=== PATIENT | male | born 1990 | race Caucasian/White ===

== ENCOUNTER 2022-10-22 13:43 | Observation (INO) | payer OTHER ==
[2022-10-22] MEDS ORDERED: DIPH,PERTUS(ACELL)TETVAC-LF 0.5 ML VIAL IM ONE (15:03)
[2022-10-22] MEDS ORDERED: LIDOCAINE 1% INJ 10MG/ML (5 ML VIAL-PF) SQ STA (15:09)
[2022-10-22] MEDS ORDERED: LIDOCAINE-PRILOCAINE 2.5-2.5% CREAM 5 GM TUBE TOPICAL STA (15:11)
[2022-10-22] MEDS ORDERED: KETOROLAC 15 MG/ML 1 ML VIAL IVP STA (15:12)
[2022-10-22] MEDS ORDERED: ACETAMINOPHEN TAB 500 MG TAB PO STA (15:12)
--- NOTE | 2022-10-22 15:16 | ED ---
Skin/Abscess/FB HPI - General Chief complaint: Skin/Abscess/Foreign Body Stated complaint: Rt arm pain Time Seen by Provider: 10/22/22 15:02 Source: patient, RN notes reviewed, old records reviewed Mode of arrival: ambulatory Limitations: no limitations - History of Present Illness Initial comments: This is a nontoxic-appearing 31-year-old male presenting from [facility] for abscess to his right forearm. Patient states that he last injected heroin 3 weeks ago at this site. He was treated at [facility] and had an I&D and antibiotics which he continues to take but does not remember the name. States over the past couple of days another abscess in the same area has formed with increased pain and surrounding redness. Denies any fevers. Patient states that he is currently taking Subutex and does not want narcotics. MD complaint: abscess/boil (right forearm) -: week(s) (1) Tetanus Up to Date: no Location: RUE (forearm) Severity scale (1-10): 9 Quality: constant Consistency: constant Improves with: none Worsens with: palpation Context: IVDA Associated symptoms: denies other symptoms Treatments Prior to Arrival: antibiotic - Related Data Home Medications Medication Instructions Recorded Confirmed Acetaminophen [Tylenol] 650 mg PO Q4H PRN 10/22/22 10/22/22 Calcium, Magnesium, Zinc, With D3 1 tab PO TID PRN 10/22/22 10/22/22 334/134/5mg Chlorpheniramine Maleate 4 mg PO Q4H PRN 10/22/22 10/22/22 [Chlor-Trimeton] Docusate [Colace] 100 mg PO BID PRN 10/22/22 10/22/22 Doxycycline [Vibramycin] 100 mg PO BID 10/22/22 10/22/22 Hyoscyamine Sulfate [Levsin] 0.125 mg PO QID PRN 10/22/22 10/22/22 Ibuprofen [Motrin Ib] 600 mg PO Q6H PRN 10/22/22 10/22/22 Loperamide HCl [Imodium A-D] 2 - 4 mg PO QID PRN MDD 16mg 10/22/22 10/22/22 Mag Hydrox/Aluminum Hyd/Simeth 30 ml PO Q4H PRN 10/22/22 10/22/22 [Mylanta Maximum Strength Liq] Magnesium Hydroxide [Milk of 2,400 mg PO BID PRN 10/22/22 10/22/22 Magnesia] Multivitamins, Thera [Multivitamin 1 tab PO DAILY 10/22/22 10/22/22 (formulary)] Thiamine [Vitamin B-1] 100 mg PO DAILY 10/22/22 10/22/22 buprenorphine HCL [Subutex] 8 mg SL DAILY 10/22/22 10/22/22 guaiFENesin [guaiFENesin Oral 200 mg PO Q4H PRN 10/22/22 10/22/22 Solution] ondansetron HCL [Zofran] 8 mg PO Q6HR PRN 10/22/22 10/22/22 traZODone HCL [Desyrel] 50 - 150 mg PO HS PRN 10/22/22 10/22/22 Allergies Allergy/AdvReac Type Severity Reaction Status Date / Time No Known Allergies Allergy Verified 10/22/22 14:01 Review of Systems ROS Statement: Those systems with pertinent positive or pertinent negative responses have been documented in the HPI. ROS Other: All systems not noted in ROS Statement are negative. Past Medical History Past Medical History: No Reported History History of Any Multi-Drug Resistant Organisms: None Reported Past Surgical History: No Surgical Hx Reported Past Psychological History: Depression Smoking Status: Current every day smoker Past Alcohol Use History: None Reported Past Drug Use History: Cocaine, IV Drug Use, Marijuana General Exam Limitations: no limitations General appearance: alert, in no apparent distress Head exam: Present: atraumatic, normocephalic Eye exam: Present: normal appearance. Absent: scleral icterus, conjunctival injection, periorbital swelling Neck exam: Present: full ROM. Absent: tenderness, meningismus Respiratory exam: Absent: respiratory distress, accessory muscle use Cardiovascular Exam: Present: regular rate Extremities exam: Present: full ROM, tenderness (right forearm abscess with cellulitis and necrotic area approx 1cm), normal capillary refill Neurological exam: Present: alert, oriented X3, normal gait Psychiatric exam: Present: normal affect, normal mood Skin exam: Present: warm, dry, normal color. Absent: cyanosis, diaphoretic, petechiae, pallor Course Vital Signs 10/22/22 10/22/22 10/22/22 13:55 17:41 18:15 Temperature 98.0 F 98.6 F 98.2 F Pulse Rate 77 54 L Pulse Rate [ 78 Right Pulse Oximetery] Respiratory 22 18 16 Rate Blood Pressure 122/72 121/93 Blood Pressure 107/70 [Left Arm] O2 Sat by Pulse 100 100 100 Oximetry Procedures - Incision & Drainage Consent Obtained: verbal consent Site: upper extremity (right forearm) Anesthetic Used: lidocaine 1% (with topical lidocaine) I&D Cleaning Method: Alcohol Wipe Sterile Field Used?: No Scalpel Used: #15 Needle Aspiration Performed?: No Irrigation Performed?: No I&D Drainage Obtained: Pus Culture Obtained?: Yes Patient Tolerated Procedure: well Medical Decision Making - Medical Decision Making Was pt. sent in by a medical professional or institution (, PA, SENIOR SHAREPOINT DEVELOPER, urgent care, hospital, or fci...) When possible be specific @ -[facility] staff Did you speak to anyone other than the patient for history (EMS, parent, family, police, friend...)? What history was obtained from this source @ -No Did you review nursing and triage notes (agree or disagree)? Why? @ -I reviewed and agree with nursing and triage notes Were old charts reviewed (outside hosp., previous admission, EMS record, old EKG, old radiological studies, urgent care reports/EKG's, fci records)? Report findings @ -No old charts were reviewed Differential Diagnosis (chest pain, altered mental status, abdominal pain women, abdominal pain men, vaginal bleeding, weakness, fever, dyspnea, syncope, headache, dizziness, GI bleed, back pain, seizure, CVA, palpatations, mental health, musculoskeletal)? @ -Abscess, cellulitis, retained foreign body, osteomyelitis EKG interpreted by me (3pts min.). @ -n/a X-rays interpreted by me (1pt min.). @ -Yes. No evidence of foreign body. Soft tissue swelling noted. CT interpreted by me (1pt min.). @ -None done U/S interpreted by me (1pt. min.). @ -None done What testing was considered but not performed or refused? (CT, X-rays, U/S, labs)? Why? @ -None What meds were considered but not given or refused? Why? @ -Narcotics were offered and patient declined. At [facility] for rehab of heroin abuse. Did you discuss the management of the patient with other professionals (profe ssionals i.e. , PA, SENIOR SHAREPOINT DEVELOPER, lab, RT, psych nurse, social services manager, steam conditioner operator, teacher, hydrological technical officer, major case detective)? Give summary @ -No Was smoking cessation discussed for >3mins.? @ -No Was critical care preformed (if so, how long)? @ -No Were there social determinants of health that impacted care today? How? (Homelessness, low income, unemployed, alcoholism, drug addiction, transportati on, low edu. Level, literacy, decrease access to med. care, group home, rehab)? @ -No Was there de-escalation of care discussed even if they declined (Discuss DNR or withdrawal of care, Hospice)? DNR status @ -No What co-morbidities impacted this encounter? (DM, HTN, Smoking, COPD, CAD, Cancer, CVA, ARF, Chemo, Hep., AIDS, mental health diagnosis, sleep apnea, morbid obesity)? @ -Heroin abuse Was patient admitted / discharged? Hospital course, mention meds given and route, prescriptions, significant lab abnormalities, going to OR and other pertinent info. @ -Admitted. 31-year-old male presenting from [facility] for abscess to his right forearm. At [facility] for heroin abuse. Patient states that he last injected heroin 3 weeks ago at this site. He was treated at [facility] and had an I&D and antibiotics which he continues to take but does not remember the name. States over the past couple of days another abscess in the same area has formed with increased pain and surrounding redness. Denies any fevers. Patient states that he is currently taking Subutex and does not want narcotics. He was given Tylenol and Toradol for pain. Labs show mild leukocytosis. No evidence of lactic acidosis. X-ray to rule out foreign body in the right forearm was performed to proceed by me with no evidence of foreign body. Radiologist interpretation suspect extensi ve cellulitis and soft tissue swelling throughout the forearm. Contour deformity possible abscess or ulcer along the ulnar volar aspect of the midforearm. No radiopaque foreign body or underlying osseous abnormality seen. Incision and drainage was performed and a large amount of purulent drainage. Culture was sent. Patient was started on vancomycin for failed outpatient therapy of abscess with surrounding cellulitis right forearm. Patient will be admitted to the hospital with infectious disease consult. He is agreeable to this plan of care. Undiagnosed new problem with uncertain prognosis? @ -No Drug Therapy requiring intensive monitoring for toxicity (Heparin, Nitro, Insulin, Cardizem)? @ -No Were any procedures done? @ -Incision and drainage from right forearm abscess Diagnosis/symptom? @ -Right forearm abscess with surrounding cellulitis, failed outpatient therapy Acute, or Chronic, or Acute on Chronic? @ -Acute Uncomplicated (without systemic symptoms) or Complicated (systemic symptoms)? @ -Complicated Side effects of treatment? @ -No Exacerbation, Progression, or Severe Exacerbation? @ -No Poses a threat to life or bodily function? How? (Chest pain, [place], [place], pneumonia, PE, COPD, DKA, ARF, appy, cholecystitis, CVA, Diverticulitis, Homicidal, S uicidal, threat to staff... and all critical care pts) @ -No - Lab Data Result diagrams: 10/22/22 15:19 10/22/22 16:56 Lab Results 10/22/22 10/22/22 10/22/22 Range/Units 15:19 15:19 15:19 WBC 11.5 H (3.8-10.6) k/uL RBC 4.62 (4.30-5.90) m/uL Hgb 12.9 L (13.0-17.5) gm/dL Hct 40.5 (39.0-53.0) % MCV 87.7 (80.0-100.0) fL MCH 28.0 (25.0-35.0) pg MCHC 31.9 (31.0-37.0) g/dL RDW 14.1 (11.5-15.5) % Plt Count 299 (150-450) k/uL MPV 7.4 Neutrophils % 75 % Lymphocytes % 14 % Monocytes % 5 % Eosinophils % 2 % Basophils % 1 % Neutrophils # 8.6 H (1.3-7.7) k/uL Lymphocytes # 1.6 (1.0-4.8) k/uL Monocytes # 0.6 (0-1.0) k/uL Eosinophils # 0.2 (0-0.7) k/uL Basophils # 0.1 (0-0.2) k/uL Sodium 136 L (137-145) mmol/L Potassium 5.0 (3.5-5.1) mmol/L Chloride 102 (98-107) mmol/L Carbon Dioxide 27 (22-30) mmol/L Anion Gap 7 mmol/L BUN 20 (9-20) mg/dL Creatinine 0.62 L (0.66-1.25) mg/dL Est GFR (CKD-EPI)AfAm >90 (>60 ml/min/1.73 sqM) Est GFR (CKD-EPI)NonAf >90 (>60 ml/min/1.73 sqM) Glucose 89 (74-99) mg/dL Plasma Lactic Acid George 0.8 (0.7-2.0) mmol/L Calcium 8.8 (8.4-10.2) mg/dL Total Bilirubin 0.4 (0.2-1.3) mg/dL AST 30 (17-59) U/L ALT 31 (4-49) U/L Alkaline Phosphatase 65 (38-126) U/L Total Protein 7.0 (6.3-8.2) g/dL Albumin 3.8 (3.5-5.0) g/dL Disposition Clinical Impression: Cellulitis and abscess of upper extremity Disposition: ADMITTED IP TO THIS HOSP Decision Date: 10/22/22
[2022-10-22] MEDS ORDERED: VANCOMYCIN IV PER PHARMACY 1 EACH MISC MISCELLANE PRN (15:17)
[2022-10-22] MEDS ORDERED: IBUPROFEN 400 MG TAB PO PRN (15:57)
[2022-10-22] MEDS ORDERED: NALOXONE 0.4 MG/ML 1 ML VIAL IV PRN (15:57)
[2022-10-22] MEDS ORDERED: ACETAMINOPHEN TAB 325 MG TAB PO PRN (15:57)
[2022-10-22] MEDS ORDERED: VANCOMYCIN 1,250 MG in SODIUM CHLORIDE 0.9% 250 ML IVPB ONE (16:00)
[2022-10-22 16:24] LABS: Basophils # (A) 0.1 k/uL (0-0.2); Basophils % (A) 1 %; Eosinophils # (A) 0.2 k/uL (0-0.7); Eosinophils % (A) 2 %; HCT 40.5 % (39.0-53.0); HGB 12.9 gm/dL (13.0-17.5); Lymphocytes # (A) 1.6 k/uL (1.0-4.8); Lymphocytes % (A) 14 %; MCHC 31.9 g/dL (31.0-37.0); MCV 87.7 fL (80.0-100.0); Mean Platelet Volume 7.4; Monocytes # (A) 0.6 k/uL (0-1.0); Monocytes % (A) 5 %; Neutrophils # (A) 8.6 k/uL (1.3-7.7); Neutrophils % (A) 75 %; Platelet Count 299 k/uL (150-450); RBC 4.62 m/uL (4.30-5.90); RDW 14.1 % (11.5-15.5); WBC 11.5 k/uL (3.8-10.6)
--- NOTE | 2022-10-22 16:24 | XR ---
EXAMINATION TYPE: XR forearm RT DATE OF EXAM: 10/22/2022 COMPARISON: NONE HISTORY: 31-year-old male for body, pain, redness, and swelling. IVDA injection 3 weeks ago. TECHNIQUE: 2 views FINDINGS: There is generalized soft tissue swelling throughout the forearm with contour irregularity in focal p rotuberance from the ulnar volar aspect of the midforearm. No retained radiopaque foreign body is see n. No soft tissue air is identified. IMPRESSION: Suspect extensive cellulitis and soft tissue swelling throughout the forearm. Contour deformity, poss ible abscess or ulcer along the ulnar volar aspect of the midforearm. No radiopaque foreign body or u nderlying acute osseous abnormality seen.
[2022-10-22] MEDS ORDERED: HYDROmorphone 1 MG/ML 1 ML SYRINGE IVP STA (16:37)
[2022-10-22 16:42] LABS: ALT 31 U/L (4-49); AST 30 U/L (17-59); African American GFR (CKD) >90 (>60 ml/min/1.73 sqM); Albumin 3.8 g/dL (3.5-5.0); Alkaline Phosphatase 65 U/L (38-126); Anion Gap 7 mmol/L; Blood Urea Nitrogen 20 mg/dL (9-20); Calcium 8.8 mg/dL (8.4-10.2); Carbon Dioxide 27 mmol/L (22-30); Chloride 102 mmol/L (98-107); Non-African American GFR(CKD) >90 (>60 ml/min/1.73 sqM); Sodium 136 mmol/L (137-145); Total Bilirubin 0.4 mg/dL (0.2-1.3)
[2022-10-22 16:46] LABS: Glucose 89 mg/dL (74-99)
[2022-10-22] MEDS: LORazepam 1 MG TAB PO PRN ×2 (16:47→20:47)
--- NOTE | 2022-10-22 16:54 | P.HPIM ---
History of Present Illness H&P Date: 10/22/22 31-year-old male with PMH of IV drug abuse presents the ED for right forearm abscess and cellulitis. He was sent from [facility]. Patient reports symptoms ongoing for the past 2 weeks. Patient reports attempting to inject IV drugs in that area 2 weeks ago when he missed the vein. Initially presented at [facility] in [place] ED where they performed I&D and discharged him with oral antibiotics. He reports worsening erythema and swelling over the last 2 days. He reports taking Subutex at [facility]. He denies any headache, lower extremity edema, nausea or vomiting, fever or chills, cough, chest pain, shortness of breath, palpitations, changes in urination or bowel habits. No changes in appetite or weight. He denies any dizziness, numbness/weakness/tingling of the extremities. In the ED, his vital signs are stable. CBC showed leukocytosis of 11.5 with neutrophilia. Forearm x-ray showed extensive cellulitis and soft tissue swelling throughout the forearm with possible abscess formation. Patient is admitted for further management. Pertinent positives and negatives as discussed in HPI, a complete review of systems was performed and all other systems are negative. General: non toxic, no distress, appears at stated age Derm: warm, dry, right forearm with erythema and swelling, open wound draining purulent material along with induration on the lateral side Head: atraumatic, normocephalic, symmetric Eyes: EOMI, no lid lag, anicteric sclera Mouth: no lip lesion, mucus membranes moist Cardiovascular: S1S2 reg, no murmur Lungs: CTA bilateral, no rhonchi, no rales , no accessory muscle use Ext: no gross muscle atrophy, no edema, no contractures Neuro: no focal neuro deficits Psych: Alert, oriented, appropriate affect Right forearm abscess History of IV drug abuse Smoker Based on my assessment of this patient, this patient meets a high complexity level of care. Patient has an acute diagnosis of forearm abscess, failed outpatient antibiotic treatment that poses a threat to life or bodily function. Currently has a leukocytosis. Antibiotics: Vancomycin 1250 mg IV x 1 with dosing per pharmacy Pain management: Toradol 15 mg IV Q6H, Dilaudid 1 mg IV x 1 Infectious disease and general surgery consulted. We will confirm with [facility] that he is taking Subutex. SCDs for DVT prophylaxis. Mother is his decision maker if he can't make decisions for himself. FULL CODE. I have reviewed the following commercial solar sales consultant notes: None. I have reviewed the results of the following tests: CBC showed leukocytosis of 11.5 with neutrophilia. Forearm x-ray showed ex tensive cellulitis and soft tissue swelling throughout the forearm with possible abscess formation. I have ordered the following tests: Wound culture and blood culture is ordered. CMP ordered. Lactic acid ordered. I have discussed the care of this patient with the following independent historian: None. I have independently interpreted the following test below: None. I have discussed the management of this patient with the following physician: The case was discussed with the ED physician and decision made to admit the patient for treatment of abscess and cellulities, failed outpatient treatment with oral antibitoics. This patient has a high risk of morbidity due to the following reasons: Vancomycin is nephrotoxic - needs daily monitoring of trough and renal function. Past Medical History Past Medical History: No Reported History History of Any Multi-Drug Resistant Organisms: None Reported Past Surgical History: No Surgical Hx Reported Past Psychological History: Depression Smoking Status: Current every day smoker Past Alcohol Use History: None Reported Past Drug Use History: Cocaine, IV Drug Use, Marijuana Medications and Allergies Allergies Allergy/AdvReac Type Severity Reaction Status Date / Time No Known Allergies Allergy Verified 10/22/22 14:01 Physical Exam Vitals: Vital Signs Temp Pulse Resp BP Pulse Ox 10/22/22 13:55 98.0 F 77 22 122/72 100 Intake and Output 10/22/22 10/22/22 10/22/22 06:59 14:59 22:59 Other: Weight 65.771 kg Results CBC & Chem 7: 10/22/22 15:19 10/22/22 15:19 Labs: Abnormal Lab Results - Last 24 Hours (Table) 10/22/22 10/22/22 Range/Units 15:19 15:19 WBC 11.5 H (3.8-10.6) k/uL Hgb 12.9 L (13.0-17.5) gm/dL Neutrophils # 8.6 H (1.3-7.7) k/uL Sodium 136 L (137-145) mmol/L Creatinine 0.62 L (0.66-1.25) mg/dL
[2022-10-22] MEDS ORDERED: diphenhydrAMINE 50 MG/ML 1 ML VIAL IVP ONE (17:01)
[2022-10-22 17:30] LABS: ALT 32 U/L (4-49); AST 27 U/L (17-59); African American GFR (CKD) >90 (>60 ml/min/1.73 sqM); Albumin/Globulin Ratio 1.2; Alkaline Phosphatase 72 U/L (38-126); Anion Gap 7 mmol/L; Blood Urea Nitrogen 20 mg/dL (9-20); Calcium 9.1 mg/dL (8.4-10.2); Carbon Dioxide 31 mmol/L (22-30); Chloride 100 mmol/L (98-107); Globulin 3.4 g/dL; Glucose 90 mg/dL (74-99); Non-African American GFR(CKD) >90 (>60 ml/min/1.73 sqM); Potassium 4.7 mmol/L (3.5-5.1); Sodium 138 mmol/L (137-145); Total Bilirubin 0.3 mg/dL (0.2-1.3); Total Protein 7.4 g/dL (6.3-8.2)
[2022-10-22] MEDS: NICOTINE 21MG/24HR PATCH TRANSDERM SCH (18:38)
[2022-10-22] MEDS: KETOROLAC 15 MG/ML 1 ML VIAL IVP PRN (23:00)
[2022-10-22] MEDS: VANCOMYCIN 1,250 MG in SODIUM CHLORIDE 0.9% 250 ML IVPB SCH (23:02)
[2022-10-22] MEDS ORDERED: MORPHINE SULFATE 2 MG/ML SYRINGE IVP STA (23:09)
[2022-10-23 06:47] LABS: African American GFR (CKD) >90 (>60 ml/min/1.73 sqM); Non-African American GFR(CKD) >90 (>60 ml/min/1.73 sqM)
[2022-10-23] MEDS: LORazepam 1 MG TAB PO PRN ×4 (07:50→23:23)
[2022-10-23] MEDS: KETOROLAC 15 MG/ML 1 ML VIAL IVP PRN (07:50)
[2022-10-23] MEDS: VANCOMYCIN 1,250 MG in SODIUM CHLORIDE 0.9% 250 ML IVPB SCH ×2 (07:51→16:15)
[2022-10-23] MEDS: NICOTINE 21MG/24HR PATCH TRANSDERM SCH (07:51)
[2022-10-23] MEDS: NON FORMULARY DRUG (Buprenorphine Hcl [Subutex] 2 MG Tab.Subl) SUBLINGUAL SCH (09:01)
[2022-10-23] MEDS: MORPHINE SULFATE 2 MG/ML SYRINGE IVP PRN ×4 (09:53→23:22)
--- NOTE | 2022-10-23 10:15 | P.GSCN ---
History of Present Illness Consult date: 10/23/22 Reason for Consult: Right forearm abscess History of present illness: Is a 31-year-old male with history of IV drug abuse. Patient states he was injecting Patanol. He has developed an abscess. This was initially drained several weeks ago. He has also developed another abscess in his arm. This was apparently drained in the emergency room. Patient states the swelling has improved. He denies any significant pain. Past Medical History Past Medical History: No Reported History History of Any Multi-Drug Resistant Organisms: None Reported Past Surgical History: No Surgical Hx Reported Past Psychological History: Depression Smoking Status: Current every day smoker Past Alcohol Use History: None Reported Past Drug Use History: Cocaine, IV Drug Use, Marijuana Medications and Allergies Home Medications Medication Instructions Recorded Confirmed Type Acetaminophen [Tylenol] 650 mg PO Q4H PRN 10/22/22 10/22/22 History Calcium, Magnesium, Zinc, With D3 1 tab PO TID PRN 10/22/22 10/22/22 History 334/134/5mg Chlorpheniramine Maleate 4 mg PO Q4H PRN 10/22/22 10/22/22 History [Chlor-Trimeton] Docusate [Colace] 100 mg PO BID PRN 10/22/22 10/22/22 History Doxycycline [Vibramycin] 100 mg PO BID 10/22/22 10/22/22 History Hyoscyamine Sulfate [Levsin] 0.125 mg PO QID PRN 10/22/22 10/22/22 History Ibuprofen [Motrin Ib] 600 mg PO Q6H PRN 10/22/22 10/22/22 History Loperamide HCl [Imodium A-D] 2 - 4 mg PO QID PRN MDD 16mg 10/22/22 10/22/22 History Mag Hydrox/Aluminum Hyd/Simeth 30 ml PO Q4H PRN 10/22/22 10/22/22 History [Mylanta Maximum Strength Liq] Magnesium Hydroxide [Milk of 2,400 mg PO BID PRN 10/22/22 10/22/22 History Magnesia] Multivitamins, Thera [Multivitamin 1 tab PO DAILY 10/22/22 10/22/22 History (formulary)] Thiamine [Vitamin B-1] 100 mg PO DAILY 10/22/22 10/22/22 History buprenorphine HCL [Subutex] 8 mg SL DAILY 10/22/22 10/22/22 History guaiFENesin [guaiFENesin Oral 200 mg PO Q4H PRN 10/22/22 10/22/22 History Solution] ondansetron HCL [Zofran] 8 mg PO Q6HR PRN 10/22/22 10/22/22 History traZODone HCL [Desyrel] 50 - 150 mg PO HS PRN 10/22/22 10/22/22 History Allergies Allergy/AdvReac Type Severity Reaction Status Date / Time No Known Allergies Allergy Verified 10/22/22 14:01 Surgical - Exam Vital Signs Temp Pulse Resp BP Pulse Ox 98.0 F 77 22 122/72 100 10/22/22 13:55 10/22/22 13:55 10/22/22 13:55 10/22/22 13:55 10/22/22 13:55 - General no distress - Eyes PERRL - ENT normal pinna - Neck no masses - Respiratory normal expansion - Cardiovascular Rhythm: regular - Abdomen Abdomen: soft, non tender - Integumentary There is evidence of 2 1 cm incisions on the right forearm. Is no drainable abscess present. Results - Labs 10/22/22 15:19 10/23/22 06:14 Abnormal Lab Results - Last 24 Hours (Table) 10/22/22 10/22/22 10/22/22 Range/Units 15:19 15:19 16:56 WBC 11.5 H (3.8-10.6) k/uL Hgb 12.9 L (13.0-17.5) gm/dL Neutrophils # 8.6 H (1.3-7.7) k/uL Sodium 136 L (137-145) mmol/L Carbon Dioxide 31 H (22-30) mmol/L Creatinine 0.62 L 0.58 L (0.66-1.25) mg/dL 10/23/22 Range/Units 06:14 WBC (3.8-10.6) k/uL Hgb (13.0-17.5) gm/dL Neutrophils # (1.3-7.7) k/uL Sodium (137-145) mmol/L Carbon Dioxide (22-30) mmol/L Creatinine 0.53 L (0.66-1.25) mg/dL Microbiology - Last 24 Hours (Table) 10/22/22 15:19 Wound Culture - Preliminary Arm - Right Diabetes panel 10/22/22 10/22/22 10/23/22 Range/Units 15:19 16:56 06:14 Sodium 136 L 138 (137-145) mmol/L Potassium 5.0 4.7 (3.5-5.1) mmol/L Chloride 102 100 (98-107) mmol/L Carbon Dioxide 27 31 H (22-30) mmol/L BUN 20 20 (9-20) mg/dL Creatinine 0.62 L 0.58 L 0.53 L (0.66-1.25) mg/dL Glucose 89 90 (74-99) mg/dL Calcium 8.8 9.1 (8.4-10.2) mg/dL AST 30 27 (17-59) U/L ALT 31 32 (4-49) U/L Alkaline Phosphatase 65 72 (38-126) U/L Total Protein 7.0 7.4 (6.3-8.2) g/dL Albumin 3.8 4.0 (3.5-5.0) g/dL Calcium panel 10/22/22 10/22/22 Range/Units 15:19 16:56 Calcium 8.8 9.1 (8.4-10.2) mg/dL Albumin 3.8 4.0 (3.5-5.0) g/dL Pituitary panel 10/22/22 10/22/22 10/23/22 Range/Units 15:19 16:56 06:14 Sodium 136 L 138 (137-145) mmol/L Potassium 5.0 4.7 (3.5-5.1) mmol/L Chloride 102 100 (98-107) mmol/L Carbon Dioxide 27 31 H (22-30) mmol/L BUN 20 20 (9-20) mg/dL Creatinine 0.62 L 0.58 L 0.53 L (0.66-1.25) mg/dL Glucose 89 90 (74-99) mg/dL Calcium 8.8 9.1 (8.4-10.2) mg/dL Adrenal panel 10/22/22 10/22/22 10/23/22 Range/Units 15:19 16:56 06:14 Sodium 136 L 138 (137-145) mmol/L Potassium 5.0 4.7 (3.5-5.1) mmol/L Chloride 102 100 (98-107) mmol/L Carbon Dioxide 27 31 H (22-30) mmol/L BUN 20 20 (9-20) mg/dL Creatinine 0.62 L 0.58 L 0.53 L (0.66-1.25) mg/dL Glucose 89 90 (74-99) mg/dL Calcium 8.8 9.1 (8.4-10.2) mg/dL Total Bilirubin 0.4 0.3 (0.2-1.3) mg/dL AST 30 27 (17-59) U/L ALT 31 32 (4-49) U/L Alkaline Phosphatase 65 72 (38-126) U/L Total Protein 7.0 7.4 (6.3-8.2) g/dL Albumin 3.8 4.0 (3.5-5.0) g/dL Assessment and Plan Assessment: History of IV drug abuse with forearm abscess related to injections. Patient has no drainable abscess currently. Continue receive IV antibiotics.
--- NOTE | 2022-10-23 12:07 | P.PN ---
Subjective Progress Note Date: 10/23/22 31-year-old male with PMH of IV drug abuse presents the ED for right forearm abscess and cellulitis. He was sent from [facility]. Patient reports symptoms ongoing for the past 2 weeks. Patient reports attempting to inject IV drugs in that area 2 weeks ago when he missed the vein. Initially presented at [facility] in [place] ED where they performed I&D and discharged him with oral antibiotics. He reports worsening erythema and swelling over the last 2 days. He reports taking Subutex at [facility]. He denies any headache, lower extremity edema, nausea or vomiting, fever or chills, cough, chest pain, shortness of breath, palpitations, changes in urination or bowel habits. No changes in appetite or weight. He denies any dizziness, numbness/weakness/tingling of the extremities. In the ED, his vital signs are stable. CBC showed leukocytosis of 11.5 with neutrophilia. Forearm x-ray showed extensive cellulitis and soft tissue swelling throughout the forearm with possible abscess formation. Patient was started on Vancomycin and admitted for further management. 10/23 Patient was seen and examined. No acute events overnight. Subutex unable to be verified yesterday and patient started on Morphine PRN for pain control. He reports that the abscess self drained while in the ED. Wound culture is pending. Renal function shows Cr 0.53. Continued on Vancomycin IV. General: non toxic, no distress, appears at stated age Derm: warm, dry, right forearm dressing c/d/i Head: atraumatic, normocephalic, symmetric Eyes: EOMI, no lid lag, anicteric sclera Cardiovascular: good distal perfusion in all 4 extremities Lungs: breathing comfortably, no accessory muscle use Ext: no gross muscle atrophy, no edema, no contractures Neuro: no focal neuro deficits Psych: Alert, oriented, appropriate affect Right forearm abscess History of IV drug abuse Anxiety Smoker Based on my assessment of this patient, this patient meets a high complexity level of care. Patient has an acute diagnosis of forearm abscess, failed outpatient antibiotic treatment that poses a threat to life or bodily function. Currently has a leukocytosis. Antibiotics: Vancomycin 1250 mg IV Q8H with dosing per pharmacy Pain management: Toradol 15 mg IV Q6H, Morphine 2mg IV Q4H PRN for today and start Suboxone tomorrow. Infectious disease and general surgery on board. Pharmacy confirmed with [facility] that he is taking Subutex. Start Suboxone tomorrow. SCDs for DVT prophylaxis. Mother is his decision maker if he can't make decisions for himself. FULL CODE. I have reviewed the following oim consultant notes: Surgery note reviewed 10/23. No surgical intervention. I have reviewed the results of the following tests: Wound culture collected and pending. Lactic acid negative. I have ordered the following tests: Wound culture and blood culture is pending. Daily creatinine and vancomycin trough. I have discussed the care of this patient with the following independent historian: None. I have independently interpreted the following test below: None. I have discussed the management of this patient with the following physician: The case was discussed with Dr. Kirkpatrick, continue Vancomycin while waiting for wound culture to finalize. This patient has a high risk of morbidity due to the following reasons: Vancomycin is nephrotoxic - needs daily monitoring of trough and renal function. Objective - Vital Signs Vital signs: Vital Signs Temp 98.1 F 10/23/22 07:11 Pulse 70 10/23/22 07:11 Resp 18 10/23/22 07:11 BP 114/68 10/23/22 07:11 Pulse Ox 99 10/23/22 07:11 FiO2 Intake & Output 10/22/22 10/23/22 10/23/22 18:59 06:59 18:59 Intake Total 240 180 Balance 240 180 Weight 65.771 kg Intake: Oral 240 180 Other: Voiding Method Toilet Toilet # Voids 4 - Labs CBC & Chem 7: 10/22/22 15:19 10/23/22 06:14 Labs: Abnormal Lab Results - Last 24 Hours (Table) 10/22/22 10/22/22 10/22/22 Range/Units 15:19 15:19 16:56 WBC 11.5 H (3.8-10.6) k/uL Hgb 12.9 L (13.0-17.5) gm/dL Neutrophils # 8.6 H (1.3-7.7) k/uL Sodium 136 L (137-145) mmol/L Carbon Dioxide 31 H (22-30) mmol/L Creatinine 0.62 L 0.58 L (0.66-1.25) mg/dL 10/23/22 Range/Units 06:14 WBC (3.8-10.6) k/uL Hgb (13.0-17.5) gm/dL Neutrophils # (1.3-7.7) k/uL Sodium (137-145) mmol/L Carbon Dioxide (22-30) mmol/L Creatinine 0.53 L (0.66-1.25) mg/dL Microbiology - Last 24 Hours (Table) 10/22/22 15:19 Wound Culture - Preliminary Arm - Right
[2022-10-23] MEDS ORDERED: VANCOMYCIN TROUGH DUE 1 EACH MISC MISCELLANE ONE (15:00)
--- NOTE | 2022-10-23 21:28 | P.CONS ---
History of Present Illness - Reason for Consult Consult date: 10/23/22 Abscess right forearm Requesting physician: Vic Rodriguez - Chief Complaint Right forearm swelling redness x few days - History of Present Illness Patient is a 31-year-old male with a past medical history significant for IV drug use apparently patient did injected into his right forearm and has missed a vein subsequently developed an area of swelling redness and abscess for the patient was treated and [facility], however the patient did have I&D of the abscess and subsequently has been sent home on oral antibiotic however the patient not clear about the name of those antibiotics patient subsequently has been at [facility] for rehabilitation with the patient was noticed to have a worsening swelling and redness of the right upper extremity for the patient was sent to [facility] ER for further evaluation patient denies high- grade fever or any chills has been complaining of pain to the right forearm describing it to be more of a sharp in nature almost 7-10 out of 10 with no radiation with associated swelling redness and some drainage patient on presentation the hospital was afebrile he did have vital of 11.5 with a left shift kidney function was normal liver enzymes are normal local wound culture has been obtained which are currently pending patient did have x-ray of the forearm extensor cellulitis soft tissue swelling possible abscess along the ulnar aspect of the midforearm patient was started on vancomycin with consult to general surgeon who has seen the patient and no need for any surgical drainage as there was no evidence of any abscess, infectious disease for further management of antibiotic therapy Review of Systems Positive point and negatives has been mentioned in the HPI, complete review of systems was performed and all other systems are negative Past Medical History Past Medical History: No Reported History History of Any Multi-Drug Resistant Organisms: None Reported Past Surgical History: No Surgical Hx Reported Past Psychological History: Depression Smoking Status: Current every day smoker Past Alcohol Use History: None Reported Past Drug Use History: Cocaine, IV Drug Use, Marijuana Medications and Allergies Home Medications Medication Instructions Recorded Confirmed Type Acetaminophen [Tylenol] 650 mg PO Q4H PRN 10/22/22 10/22/22 History Calcium, Magnesium, Zinc, With D3 1 tab PO TID PRN 10/22/22 10/22/22 History 334/134/5mg Chlorpheniramine Maleate 4 mg PO Q4H PRN 10/22/22 10/22/22 History [Chlor-Trimeton] Hyoscyamine Sulfate [Levsin] 0.125 mg PO QID PRN 10/22/22 10/22/22 History Ibuprofen [Motrin Ib] 600 mg PO Q6H PRN 10/22/22 10/22/22 History Loperamide HCl [Imodium A-D] 2 - 4 mg PO QID PRN MDD 16mg 10/22/22 10/22/22 History Mag Hydrox/Aluminum Hyd/Simeth 30 ml PO Q4H PRN 10/22/22 10/22/22 History [Mylanta Maximum Strength Liq] Magnesium Hydroxide [Milk of 2,400 mg PO BID PRN 10/22/22 10/22/22 History Magnesia] Multivitamins, Thera [Multivitamin 1 tab PO DAILY 10/22/22 10/22/22 History (formulary)] Thiamine [Vitamin B-1] 100 mg PO DAILY 10/22/22 10/22/22 History buprenorphine HCL [Subutex] 8 mg SL DAILY 10/22/22 10/22/22 History guaiFENesin [guaiFENesin Oral 200 mg PO Q4H PRN 10/22/22 10/22/22 History Solution] ondansetron HCL [Zofran] 8 mg PO Q6HR PRN 10/22/22 10/22/22 History traZODone HCL [Desyrel] 50 - 150 mg PO HS PRN 10/22/22 10/22/22 History Cephalexin [Keflex] 500 mg PO Q6HR 10 Days #40 cap 10/25/22 Rx Allergies Allergy/AdvReac Type Severity Reaction Status Date / Time No Known Allergies Allergy Verified 10/22/22 14:01 Physical Exam Vitals: Vital Signs Temp Pulse Pulse Resp BP BP BP 10/23/22 07:11 98.1 F 70 18 114/68 10/23/22 02:00 98 F 74 17 138/68 10/22/22 20:00 97.8 F 84 18 106/71 10/22/22 18:15 98.2 F 78 16 107/70 10/22/22 17:41 98.6 F 54 L 18 121/93 10/22/22 13:55 98.0 F 77 22 122/72 Pulse Ox 10/23/22 07:11 99 10/23/22 02:00 99 05/26/23 20:00 99 10/22/22 18:15 100 10/22/22 17:41 100 10/22/22 13:55 100 Intake and Output 10/22/22 10/23/22 10/23/22 22:59 06:59 14:59 Intake Total 240 Balance 240 Intake: Oral 240 Other: Voiding Method Toilet Toilet # Voids 1 4 Weight 65.771 kg GENERAL DESCRIPTION: Middle-aged male lying in bed, no distress. No tachypnea or accessory muscle of respiration use. HEENT: Shows Pallor , no scleral icterus. Oral mucous membrane is dry. No pha ryngeal erythema or thrush NECK: Trachea central, no thyromegaly. LUNGS: Unlabored breathing. Clear to auscultation anteriorly. No wheeze or crackle. HEART: S1, S2, regular rate and rhythm. No loud murmur ABDOMEN: Soft, no tenderness , guarding or rigidity, no organomegaly EXTREMITIES: Right forearm did have swelling redness with minimal drainage SKIN: No rash, no masses palpable. NEUROLOGICAL: The patient is awake, alert, oriented x3, mood and affect normal. Results CBC & Chem 7: 10/24/22 05:25 10/25/22 06:44 Labs: Abnormal Lab Results - Last 24 Hours (Table) 10/22/22 10/22/22 10/22/22 Range/Units 15:19 15:19 16:56 WBC 11.5 H (3.8-10.6) k/uL Hgb 12.9 L (13.0-17.5) gm/dL Neutrophils # 8.6 H (1.3-7.7) k/uL Sodium 136 L (137-145) mmol/L Carbon Dioxide 31 H (22-30) mmol/L Creatinine 0.62 L 0.58 L (0.66-1.25) mg/dL 10/23/22 Range/Units 06:14 WBC (3.8-10.6) k/uL Hgb (13.0-17.5) gm/dL Neutrophils # (1.3-7.7) k/uL Sodium (137-145) mmol/L Carbon Dioxide (22-30) mmol/L Creatinine 0.53 L (0.66-1.25) mg/dL Microbiology - Last 24 Hours (Table) 10/22/22 15:19 Wound Culture - Preliminary Arm - Right Assessment and Plan (1) Cellulitis and abscess of upper extremity Status: Acute Code(s): L03.119 - CELLULITIS OF UNSPECIFIED PART OF LIMB; L02.419 - CUTANEOUS ABSCESS OF LIMB, UNSPECIFIED SNOMED Code(s): 636103828 Plan: 1patient is to hospital right upper extremity cellulitis failing outpatient oral antibiotic therapy in this patient with a history of IV drug use and previous drainage at the outside facility and did not respond well to the oral antibiotic the patient was prescribed however the patient not sure about the name of this antibiotic and a question of compliance with outpatient oral antibiotic therapy, general surgery has seen the patient and recommending no drainage at this point 2-local cultures obtained and those will be followed 3-vancomycin pharmacy to dose with a target trough of 15 while watching kidney function and Vanco trough closely. We will follow on clinical condition and cultures to further adjust medication if needed Thank you for this consultation we will follow the patient along with you Time with Patient: Greater than 30
[2022-10-24] MEDS: CLINDAMYCIN 900 MG in DEXTROSE 5% IN WATER 50 ML IVPB SCH ×6 (00:14→15:22)
[2022-10-24] MEDS: LORazepam 1 MG TAB PO PRN ×3 (05:41→21:09)
[2022-10-24] MEDS: MORPHINE SULFATE 2 MG/ML SYRINGE IVP PRN (05:41)
[2022-10-24 06:18] LABS: African American GFR (CKD) >90 (>60 ml/min/1.73 sqM); Non-African American GFR(CKD) >90 (>60 ml/min/1.73 sqM)
[2022-10-24] MEDS: NICOTINE 21MG/24HR PATCH TRANSDERM SCH (09:23)
[2022-10-24] MEDS: NON FORMULARY DRUG (Buprenorphine Hcl [Subutex] 2 MG Tab.Subl) SUBLINGUAL SCH (09:27)
[2022-10-24 10:05] LABS: HCT 39.4 % (39.0-53.0); HGB 12.6 gm/dL (13.0-17.5); MCH 28.5 pg (25.0-35.0); MCV 89.1 fL (80.0-100.0); Mean Platelet Volume 8.5; Platelet Count 301 k/uL (150-450); RBC 4.42 m/uL (4.30-5.90); RDW 14.1 % (11.5-15.5); WBC 8.8 k/uL (3.8-10.6)
[2022-10-24 10:22] LABS: African American GFR (CKD) >90 (>60 ml/min/1.73 sqM); Anion Gap 7 mmol/L; Blood Urea Nitrogen 15 mg/dL (9-20); Calcium 8.9 mg/dL (8.4-10.2); Carbon Dioxide 26 mmol/L (22-30); Chloride 105 mmol/L (98-107); Glucose 90 mg/dL (74-99); Non-African American GFR(CKD) >90 (>60 ml/min/1.73 sqM); Potassium 4.6 mmol/L (3.5-5.1); Sodium 138 mmol/L (137-145)
--- NOTE | 2022-10-24 10:55 | P.PN ---
Progress Note - Text Progress Note Date: 10/24/22 The patient feels better. There is less swelling of his right forearm. On exam vital signs are stable. There is decreasing cellulitis of his arm. There is no significant drainage from his abscess drainage site. Status post forearm abscess related to IV drug abuse. Patient received medical management.
[2022-10-24] MEDS: KETOROLAC 15 MG/ML 1 ML VIAL IVP PRN (13:07)
--- NOTE | 2022-10-24 13:49 | P.PN ---
Subjective Progress Note Date: 10/24/22 Patient is a 31-year-old male for history of IV drug abuse, recent forearm cellulitis with abscess left who presented from [facility] due to worsening redness of his right forearm. In the ER he underwent an extensive evaluation. He was found to have an elevated white blood cell count and a forearm x-ray with extensive cellulitis and soft tissue swelling with possible abscess. He was admitted and started on vancomycin for further management. Surgery was consulted and felt there was not a definitive abscess that warm to drainage. Infectious disease was consulted. His culture came back as strep pyogenous and antibiotics were transitioned to cefazolin and clindamycin. Patient seen and examined at bedside. He reports that his arm pain is almost completely resolved. He is feeling much better. He plans on returning to [facility] on discharge. He denies any nausea, vomiting, diarrhea. Vital signs reviewed General: nontoxic, no distress, appears at stated age Cardiovascular: S1S2 reg, no murmur, positive posterior tibial pulse bilateral, Lungs: CTA bilateral, no rhonchi, no rales , no accessory muscle use Abdominal: soft, nontender to palpation, no guarding, no appreciable organomegaly Ext: no gross muscle atrophy, no edema, no contractures Right arm with approximately 7 cm area of redness 2 less than dime-sized area is open down to the subcutaneous fat without purulent drainage Neuro: CN II-XI grossly intact, no focal neuro deficits Psych: Alert, oriented, appropriate affect Assessment: Strep pyogenous Right forearm abscess, failed outpatient treatment History of IVDA Anxiety Nicotine dependency Imaging: none new Data Review: T-max last 24 hours is 98.4 Laboratory analysis from today reviewed with normal white blood cell count 8.8 and creatinine 0.59 Plan: - Continue with clindamycin 900 mg every 8 hours IV piggyback day #2 -Continue with cefazolin 2 g IV every 8 hours day #1 -Case discussed with Dr. Le and he feels that the arm is much improved. -Continue pain control with Toradol 15 mg IV every 6 hours when necessary pain or Motrin 400 mg every 6 hours when necessary pain -Patient does not have Subutex to bring in -Continue with Ativan 1 mg 3 times daily as needed for anxiety. -Await further infectious disease recommendations DVT prophylaxis: SCDs This dictation was prepared using [employer] voice recognition software. Though every attempt is made to correct errors during during dictation some may still exist. Objective - Vital Signs Vital signs: Vital Signs Temp 97.9 F 10/24/22 07:08 Pulse 89 10/24/22 07:08 Resp 19 10/24/22 07:08 BP 108/67 10/24/22 07:08 Pulse Ox 94 L 10/24/22 07:08 FiO2 Intake & Output 10/23/22 10/24/22 10/24/22 18:59 06:59 18:59 Intake Total 180 180 Balance 180 180 Intake: Oral 180 180 Other: Voiding Method Toilet Toilet # Voids 2 2 1 - Labs CBC & Chem 7: 10/24/22 05:25 10/24/22 05:25 Labs: Abnormal Lab Results - Last 24 Hours (Table) 10/24/22 10/24/22 10/24/22 Range/Units 05:25 05:25 05:25 Hgb 12.6 L (13.0-17.5) gm/dL Creatinine 0.58 L 0.59 L (0.66-1.25) mg/dL Microbiology - Last 24 Hours (Table) 10/22/22 15:19 Blood Culture - Preliminary Blood 10/22/22 15:19 Blood Culture - Preliminary Blood 10/22/22 15:19 Gram Stain - Preliminary Arm - Right Wound Culture - Preliminary Strep pyogenes (grp a)
[2022-10-24] MEDS: BUPRENORPHINE-NALOX 8-2 MG TAB 1 EACH TAB.SUBL SL SCH (14:24)
--- NOTE | 2022-10-24 21:02 | P.PN ---
Subjective Progress Note Date: 10/24/22 Principal diagnosis: R forearm abscess Patient is a 31-year-old male with a past medical history significant for IV drug use with a recent abscess to the right forearm did have a drainage at the outside facility and treated with the oral biotics without any improvement subsequently admission to this facility with worsening swelling redness and drainage. On today's evaluation that is 10/24/2022 the patient denies having any fever or any chills, patient right forearm swelling and redness has slightly decreased denies any chest pain shortness of breath or cough no abdominal pain and no diarrhea Objective - Vital Signs Vital signs: Vital Signs Temp 97.9 F 10/24/22 07:08 Pulse 89 10/24/22 07:08 Resp 19 10/24/22 07:08 BP 108/67 10/24/22 07:08 Pulse Ox 94 L 10/24/22 07:08 FiO2 Intake & Output 10/23/22 10/24/22 10/24/22 18:59 06:59 18:59 Intake Total 180 180 Balance 180 180 Intake: Oral 180 180 Other: Voiding Method Toilet Toilet # Voids 2 2 - Labs CBC & Chem 7: 10/24/22 05:25 10/24/22 05:25 Labs: Abnormal Lab Results - Last 24 Hours (Table) 10/24/22 10/24/22 10/24/22 Range/Units 05:25 05:25 05:25 Hgb 12.6 L (13.0-17.5) gm/dL Creatinine 0.58 L 0.59 L (0.66-1.25) mg/dL Microbiology - Last 24 Hours (Table) 10/22/22 15:19 Blood Culture - Preliminary Blood 10/22/22 15:19 Blood Culture - Preliminary Blood 10/22/22 15:19 Gram Stain - Preliminary Arm - Right Wound Culture - Preliminary Strep pyogenes (grp a) Assessment and Plan Plan: 1patient is to hospital right upper extremity cellulitis failing outpatient oral antibiotic therapy in this patient with a history of IV drug use and previous drainage at the outside facility and did not respond well to the oral antibiotic the patient was prescribed however the patient not sure about the name of this antibiotic and a question of compliance with outpatient oral antibiotic therapy, general surgery has seen the patient and recommending no drainage at this point 2-local cultures Are currently growing Streptococcus pyogenes. 3antibiotic has been switched over to cefazolin and clindamycin last night dose will be continued for now and monitor clinical course closely Time with Patient: Less than 30
[2022-10-25] MEDS: CLINDAMYCIN 900 MG in DEXTROSE 5% IN WATER 50 ML IVPB SCH ×4 (01:29→05:49)
[2022-10-25 07:23] LABS: African American GFR (CKD) >90 (>60 ml/min/1.73 sqM); Non-African American GFR(CKD) >90 (>60 ml/min/1.73 sqM)
[2022-10-25 07:27] VITALS: BP 108/73; PULSE 73; RESP 18; TEMP 98
[2022-10-25] MEDS: LORazepam 1 MG TAB PO PRN (08:04)
[2022-10-25] MEDS: NICOTINE 21MG/24HR PATCH TRANSDERM SCH (08:04)
[2022-10-25] MEDS: BUPRENORPHINE-NALOX 8-2 MG TAB 1 EACH TAB.SUBL SL SCH (09:05)
--- NOTE | 2022-10-25 09:54 | P.PN ---
Progress Note - Text Progress Note Date: 10/25/22 Patient feels better. He has no significant right arm pain. He states his cellulitis improved. On exam vital signs are stable. Right arm cellulitis has resolved. Status post incision and drainage of right arm abscess related to IV drug abuse. Patient appears to be stable for discharge.
--- NOTE | 2022-10-25 14:31 | P.PN ---
Subjective Progress Note Date: 10/25/22 Principal diagnosis: R forearm abscess Patient is a 31-year-old male with a past medical history significant for IV drug use with a recent abscess to the right forearm did have a drainage at the outside facility and treated with the oral biotics without any improvement subsequently admission to this facility with worsening swelling redness and drainage. On today's evaluation that is 10/25/2022 the patient remains to be afebrile, the patient right forearm swelling and redness has decreased in intensity, the patient denies any chest pain shortness of breath or cough no abdominal pain and no diarrhea Objective - Vital Signs Vital signs: Vital Signs Temp 98.0 F 10/25/22 06:53 Pulse 73 10/25/22 06:53 Resp 18 10/25/22 06:53 BP 108/73 10/25/22 06:53 Pulse Ox 100 10/25/22 06:53 FiO2 Intake & Output 10/24/22 10/25/22 10/25/22 18:59 06:59 18:59 Intake Total 360 118 Balance 360 118 Intake: Oral 360 118 Other: Voiding Method Toilet # Voids 1 2 - Exam GENERAL DESCRIPTION: Middle-age male lying in bed in no distress RESPIRATORY SYSTEM: Unlabored breathing , decreased breath sounds at bases HEART: S1 S2 regular rate and rhythm , ABDOMEN: Soft , no tenderness EXTREMITIES: Right forearm swelling redness and induration has decreased no drainage - Labs CBC & Chem 7: 10/24/22 05:25 10/25/22 06:44 Labs: Abnormal Lab Results - Last 24 Hours (Table) 10/25/22 Range/Units 06:44 Creatinine 0.56 L (0.66-1.25) mg/dL Microbiology - Last 24 Hours (Table) 10/22/22 15:19 Blood Culture - Preliminary Blood 10/22/22 15:19 Blood Culture - Preliminary Blood 10/22/22 15:19 Gram Stain - Final Arm - Right Wound Culture - Final Strep pyogenes (grp a) Assessment and Plan (1) Cellulitis and abscess of upper extremity Status: Acute Code(s): L03.119 - CELLULITIS OF UNSPECIFIED PART OF LIMB; L02.419 - CUTANEOUS ABSCESS OF LIMB, UNSPECIFIED SNOMED Code(s): 324877067 Plan: 1patient is to hospital right upper extremity cellulitis failing outpatient oral antibiotic therapy in this patient with a history of IV drug use and previous drainage at the outside facility and did not respond well to the oral antibiotic the patient was prescribed however the patient not sure about the name of this antibiotic and a question of compliance with outpatient oral antibiotic therapy, general surgery has seen the patient and recommending no d rainage at this point 2-local cultures Are currently growing Streptococcus pyogenes. 3patient seemed to showing clinical improvement with cefazolin and clindamycin , plan is to finish therapy with oral Keflex 10 days discussed with the admitting physician Time with Patient: Less than 30
--- NOTE | 2022-10-25 15:06 | P.DS ---
Providers Date of admission: 10/22/22 16:03 Expected date of discharge: 10/25/22 Attending physician: Wesley Gil MD Consults: 10/22/22 15:57 Consult Physician Routine Consulting Provider: Vanna Kirkpatrick Consult Reason/Comments: abscess right forearm failed outpatient Do you want consulting provider notified?: Yes, Notify in am 10/22/22 16:35 Consult Physician Routine Consulting Provider: Wilfrido Le Consult Reason/Comments: Forearm abscess Do you want consulting provider notified?: Yes Primary care physician: Stated None Hospital Course: Discharge Diagnosis: Strep pyogenous Right forearm abscess, failed outpatient treatment History of IVDA Anxiety Nicotine dependency Hospital Course: Patient is a 31-year-old male for history of IV drug abuse, recent forearm cellulitis with abscess left who presented from [facility] due to worsening redness of his right forearm. In the ER he underwent an extensive evaluation. He was found to have an elevated white blood cell count and a forearm x-ray with extensive cellulitis and soft tissue swelling with possible abscess. He was admitted and started on vancomycin for further management. Surgery was consulted and felt there was not a definitive abscess that warm to drainage. Infectious disease was consulted. His culture came back as strep pyogenous and antibiotics were transitioned to cefazolin and clindamycin. He continued to do well and was determined stable for discharge. Follow-up: Patient can return to [facility]. He will take 7 days of Keflex 500 mg 4 times daily. He'll follow-up with his PCP and discharge from [facility]. Patient seen and examined at bedside. Doing well. Asking to be discharged. No other complaints currently. Vital signs reviewed and stable. General: nontoxic, no distress, appears at stated age Derm: warm, dry Head: atraumatic, normocephalic, symmetric Eyes: EOMI, no lid lag, anicteric sclera Mouth: no lip lesion, mucus membranes moist Cardiovascular: S1S2 reg, no murmur, positive posterior tibial pulse bilateral, Lungs: CTA bilateral, no rhonchi, no rales , no accessory muscle use Ext: no gross muscle atrophy, no edema, no contractures, decreased area of redness left forearm Neuro: CN II-XI grossly intact, no focal neuro deficits Psych: Alert, oriented, appropriate affect A total of 25 minutes of time were spent preparing this complex discharge summary. Patient was discharged on 10/25/22. This dictation was prepared using [employer] voice recognition software. Though every attempt is made to correct errors during during dictation some may still exist. Patient Condition at Discharge: Fair Plan - Discharge Summary Discharge Rx Participant: Yes New Discharge Prescriptions: New Cephalexin [Keflex] 500 mg PO Q6HR 10 Days #40 cap Continue RX: ondansetron HCL [Zofran] 8 mg PO Q6HR PRN PRN Reason: Nausea RX: Acetaminophen [Tylenol] 650 mg PO Q4H PRN PRN Reason: Pain Or Fever > 100.5 RX: traZODone HCL [Desyrel] 50 - 150 mg PO HS PRN PRN Reason: sleep RX: Mag Hydrox/Aluminum Hyd/Simeth [Mylanta Maximum Strength Liq] 30 ml PO Q4H PRN PRN Reason: Gi Upset RX: Multivitamins, Thera [Multivitamin (formulary)] 1 tab PO DAILY RX: Hyoscyamine Sulfate [Levsin] 0.125 mg PO QID PRN PRN Reason: cramps RX: Chlorpheniramine Maleate [Chlor-Trimeton] 4 mg PO Q4H PRN PRN Reason: withdrawl symptoms Calcium, Magnesium, Zinc, With D3 334/134/5mg 1 tab PO TID PRN PRN Reason: cramps RX: Thiamine [Vitamin B-1] 100 mg PO DAILY RX: buprenorphine HCL [Subutex] 8 mg SL DAILY RX: Magnesium Hydroxide [Milk of Magnesia] 2,400 mg PO BID PRN PRN Reason: Constipation RX: Ibuprofen [Motrin Ib] 600 mg PO Q6H PRN PRN Reason: Pain Or Fever > 100.5 RX: Loperamide HCl [Imodium A-D] 2 - 4 mg PO QID PRN MDD 16mg PRN Reason: Diarrhea RX: guaiFENesin [guaiFENesin Oral Solution] 200 mg PO Q4H PRN PRN Reason: Congestion Discontinued Docusate [Colace] 100 mg PO BID PRN PRN Reason: Constipation Doxycycline [Vibramycin] 100 mg PO BID Discharge Medication List Calcium, Magnesium, Zinc, With D3 334/134/5mg 1 tab PO TID PRN 10/22/22 [History] RX: Acetaminophen [Tylenol] 650 mg PO Q4H PRN 10/22/22 [History] RX: Chlorpheniramine Maleate [Chlor-Trimeton] 4 mg PO Q4H PRN 10/22/22 [History] RX: Hyoscyamine Sulfate [Levsin] 0.125 mg PO QID PRN 10/22/22 [History] RX: Ibuprofen [Motrin Ib] 600 mg PO Q6H PRN 10/22/22 [History] RX: Loperamide HCl [Imodium A-D] 2 - 4 mg PO QID PRN MDD 16mg 10/22/22 [History] RX: Mag Hydrox/Aluminum Hyd/Simeth [Mylanta Maximum Strength Liq] 30 ml PO Q4H PRN 10/22/22 [History] RX: Magnesium Hydroxide [Milk of Magnesia] 2,400 mg PO BID PRN 10/22/22 [History] RX: Multivitamins, Thera [Multivitamin (formulary)] 1 tab PO DAILY 10/22/22 [History] RX: Thiamine [Vitamin B-1] 100 mg PO DAILY 10/22/22 [History] RX: buprenorphine HCL [Subutex] 8 mg SL DAILY 10/22/22 [History] RX: guaiFENesin [guaiFENesin Oral Solution] 200 mg PO Q4H PRN 10/22/22 [History] RX: ondansetron HCL [Zofran] 8 mg PO Q6HR PRN 10/22/22 [History] RX: traZODone HCL [Desyrel] 50 - 150 mg PO HS PRN 10/22/22 [History] Cephalexin [Keflex] 500 mg PO Q6HR 10 Days #40 cap 10/25/22 [Rx] Follow up Appointment(s)/Referral(s): None,Stated [Primary Care Provider] - 1-2 days Patient Instructions/Handouts: Cellulitis (GEN) Activity/Diet/Wound Care/Special Instructions: Activity: As tolerated Diet: Regular Wound Care: Keep wound clean and dry. Shower with soap and water and dried before re- placing Mazin wrap Special Instructions: Please follow up with your primary care physician after discharge from [facility] Discharge Disposition: OTHER INSTITUTION NOT DEFINED
== END 2022-10-25 14:19 | disposition other institution (70) ==
LOC: EC 13:43 → 6NMEDSUR 16:03
PROVIDERS: ADMIT Student in an Organized Health Care Education/Training Program; ATTEND Student in an Organized Health Care Education/Training Program
DX: L02.413 Cutaneous abscess of right upper limb (principal); B95.0 Streptococcus, group A, as the cause of diseases classified elsewhere; F19.11 Other psychoactive substance abuse, in remission; F17.200 Nicotine dependence, unspecified, uncomplicated; F41.9 Anxiety disorder, unspecified; F32.A Depression, unspecified
CPT/HCPCS: 96376 ×2; 96366 ×3; 96375 ×2; 90471; 96365; 96372; 99285; 80053; 80048; 82565 ×3; 83605; 85025; 85027; 80202; 87040; 87070; 87205; 87077; 87186; 73090; 90715; G0378 ×4; S4990 ×4; J3370 ×2; J1200; J0690 ×3; J2001; J2270 ×3; J1170; J1885 ×3